=== PATIENT | male | born 1945 | race Two or more races ===

== ENCOUNTER 2016-11-13 22:28 | Inpatient (IN) | payer OTHER ==
[~2016-11-13] VITALS: Ht 160 cm; Wt 71.5 kg
[~2016-11-13 22:28] MED LIST: ENAL10TA PO
[2016-11-14] VITALS (12 sets, daily range): BP systolic 111–148; BP diastolic 58–75; PULSE 45–55; RESP 18–20; Ht 160 cm; Wt 71.5 kg
[2016-11-14] MEDS ORDERED: morphine 2 MG INJ IV PRN (03:00)
[2016-11-14] MEDS ORDERED: ACETAMINOPHEN 325 MG TAB PO PRN (03:00)
[2016-11-14] MEDS ORDERED: ONDANSETRON 4 MG INJ IV PRN (03:00)
--- NOTE | 2016-11-14 06:27 | HP ---
Date/Time of Note Date/Time of Note DATE: 11/14/16 TIME: 06:16 Assessment/Plan VTE Prophylaxis VTE Prophylaxis Intervention: heparin Lines/Catheters IV C[facility] Type (from [facility] Peripheral IV Urinary Cath still in place: No Assessment/Plan Assessment/Plan 1. Near syncope and lightheadedness: TIA vs cardiovascular disease -Patient had been bradycardic in the 40s since admission here. Head CT at the outside hospital was negative for any acute processes. - Will order a 2D echo and a bilateral carotid Doppler ultrasound. Will trend his troponin. - Cardiology evaluation - will have physical therapy evaluation. 2. Sinus bradycardia -Probably contributing to the patient's symptoms. Will place a cardiology consult 3. History of hypertension: -Adjust blood pressure medication as needed 4. 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 HPI/ROS Admit Date/Time Admit Date/Time Nov 14, 2016 at 02:05 Hx of Present Illness This is a 71-year-old male with a history of hypertension and and left infraorbital basal cell carcinoma status post removal 2 years ago. Patient initially went to an outside hospital complaining of dizziness/lightheadedness and was transferred to [facility] because of insurance reason. Patient is a [place]ian-speaking only but he is accompanied by his daughter who was at the bedside. Over the past day or 2 he has been complaining of feeling dizzy and according to the daughter he almost fainted and looked pale. He did complain of some vague chest discomfort but mainly he complained of bloating sensation. Denied any facial droop, blurry vision, weakness or numbness. According to the daughter in the past he has also complained of feeling dizzy especially when he gets up from a seated position. At the outside hospital, CT of the head was done and it showed mild chronic microangiopathic ischemic disease and volume loss. No infarct or hemorrhage. His CBC and CMP were within acceptable range. Currently patient is feeling well and he actually does not have any complaint at this point. PMH/Family/Social Past Medical History Medical History: hypertension, other (facial skin carcinoma) Social History Alcohol Use: occasionally Smoking Status: Never smoker Drug Use: none Exam/Review of Systems Vital Signs Vitals Vital Signs Date Time Temp Pulse Resp B/P Pulse Ox O2 Delivery O2 Flow Rate FiO2 7/22/17 04:32 45 Exam Constitutional: alert, oriented, well developed Head: atraumatic, normocephalic Eyes: EOMI, PERRL Respiratory: clear to auscultation, normal air movement Cardiovascular: nl pulses, regular rate and rhythm Gastrointestinal: non-tender, soft Extremities: normal pulses Medications Medications Current Medications Aspirin (Aspirin) 81 mg DAILY PO ; Start 11/14/16 at 09:00 Heparin Sodium (Porcine) (Heparin (5000 Units/0.5 ml)) 5,000 unit BID SC ; Start 11/14/16 at 09:00 Morphine Sulfate (morphine) 2 mg Q4H PRN IV PAIN; Start 11/14/16 at 03:00 Atorvastatin Calcium (Lipitor) 20 mg HS PO ; Start 11/14/16 at 21:00 Acetaminophen (Tylenol Tab) 650 mg Q4H PRN PO PAIN AND OR ELEVATED TEMP; Start 11/14/16 at 03:00 Ondansetron HCl (Zofran Inj) 4 mg Q6H PRN IV NAUSEA AND/OR VOMITING; Start at 03:00 EBONY LEA MD Nov 14, 2016 06:26
[2016-11-14 07:40] LABS: BASOPHILS % 0.6 % (0.0-2.0); EOSINOPHILS # 0.2 10^3/ul (0.0-0.5); EOSINOPHILS % 2.6 % (0.0-7.0); HEMATOCRIT 41.1 % (42.0-52.0); HEMOGLOBIN 14.1 g/dl (14.0-18.0); LYMPHOCYTES # 2.2 10^3/ul (0.8-2.9); LYMPHOCYTES % 32.8 % (15.0-51.0); MEAN CORPUSCULAR HGB CONC 34.3 g/dl (32.0-37.0); MEAN CORPUSCULAR VOLUME 87.4 fl (82.0-101.0); MEAN PLATELET VOLUME 11.3 fl (7.4-10.4); MONOCYTE # 0.8 10^3/ul (0.3-0.9); MONOCYTES % 11.8 % (0.0-11.0); NEUTROPHIL # 3.4 10^3/ul (1.6-7.5); NEUTROPHILS % 51.9 % (39.0-77.0); PLATELET COUNT 171 10^3/UL (140-415); WHITE BLOOD COUNT 6.6 10^3/ul (4.8-10.8)
[2016-11-14 07:58] LABS: ALBUMIN 3.6 g/dl (3.3-4.9); ALBUMIN/GLOBULIN RATIO 1.2; BILIRUBIN,INDIRECT 0.4 mg/dl (0-1.1); BILIRUBIN,TOTAL 0.4 mg/dl (0.2-1.3); CHOL/HDL RATIO 5.6 RATIO; CREATININE 0.72 mg/dl (0.61-1.24); MAGNESIUM 2.1 mg/dl (1.7-2.5); PHOSPHORUS 3.3 mg/dl (2.5-4.9); POTASSIUM 3.8 mmol/L (3.5-5.1); TOTAL PROTEIN 6.6 g/dl (6.1-8.1)
[2016-11-14 08:22] LABS: THYROID STIMULATING HORMONE 1.66 MIU/L (0.465-4.680)
[2016-11-14] MEDS: ASPIRIN 81 MG TAB PO SCH (08:34)
[2016-11-14] MEDS: HEPARIN 5,000 UNIT/0.5 ML VIAL SC SCH ×2 (08:47→21:12)
--- NOTE | 2016-11-14 14:52 | RADRPT ---
PROCEDURE: US carotid arteries. CLINICAL INDICATION: Dizziness. Transient ischemic attack. TECHNIQUE: Multiple sonographic images of the carotid arteries and vertebral arteries were obtaine d utilizing hinojosa scale, duplex, and color-flow imaging. The images were reviewed on a PACS workstati on. COMPARISON: No prior studies are available for comparison. FINDINGS: Evaluation of the right carotid bifurcation region reveals mild atherosclerotic disease. Evaluation of the left carotid bifurcation region reveals mild atherosclerotic disease. There is antegrade flow within the vertebral arteries bilaterally. RIGHT CAROTID MEASUREMENTS: Common Carotid [id number] (cm/sec) Internal Carotid Artery 66 (cm/sec) External Carotid Artery 90 (cm/sec) Vertebral Artery 45 (cm/sec) Internal Carotid/Common Carotid1.0 LEFT CAROTID MEASUREMENTS: Common Carotid Fxvzny74 (cm/sec) Internal Carotid Artery 68 (cm/sec) External Carotid Artery 70 (cm/sec) Vertebral Artery 46 (cm/sec) Internal Carotid/Common Carotid0.8 Validated velocity measurements with angiographic measurements. Velocity criteria are extrapolated f rom diameter data as defined by the Society of Radiologists in Ultrasound Consensus Conference. Radi ology 2003; 229;340-346. This study does indirectly reference the measurement of the distal ICA justyna meter as the denominator for stenosis measurement. IMPRESSION: 1. Less than 50% stenosis bilaterally in the internal carotid arteries. 2. Normal antegrade flow in the vertebral arteries bilaterally. RPTAT: QQ SRU Consensus Conference Criteria for the Diagnosis of Carotid Artery Stenosis* Degree of Stenosis, % ICA PSV, cm/sec Plaque Estimate, % ICA/CCA PSV Ratio Normal <125 None <2.0 <50 <125 <50 <2.0 50 69 125-230 >50 2.0-4.0 >70 but less than near occlusion >230 >50 <4.0 Near occlusion High, low, or undetectable Visible Variable Total occlusion Undetectable Visible, no detectable lumen Not applicable *Cartoid artery stenosis: hinojosa-scale and Doppler US diagnosis. Society of Radiologists in Ultrasound Consensus Conference. Radiology 2003; 229: 340-346 .Frandy Ramirez MD, Date Time Electronically viewed and signed by .Frandy Ramirez MD, on 11/14/2016 14:52 .R/
[2016-11-14] MEDS: ATORVASTATIN 20 MG TAB PO SCH (21:05)
[2016-11-15] VITALS (11 sets, daily range): BP systolic 131–152; BP diastolic 65–97; PULSE 47–59; RESP 17–18
[2016-11-15 07:21] LABS: BASOPHILS % 0.6 % (0.0-2.0); EOSINOPHILS # 0.2 10^3/ul (0.0-0.5); HEMATOCRIT 42.1 % (42.0-52.0); HEMOGLOBIN 14.3 g/dl (14.0-18.0); LYMPHOCYTES # 2.4 10^3/ul (0.8-2.9); LYMPHOCYTES % 45.6 % (15.0-51.0); MEAN CORPUSCULAR HEMOGLOBIN 29.6 pg (29.0-33.0); MEAN CORPUSCULAR VOLUME 87.2 fl (82.0-101.0); MEAN PLATELET VOLUME 11.4 fl (7.4-10.4); MONOCYTE # 0.6 10^3/ul (0.3-0.9); MONOCYTES % 10.5 % (0.0-11.0); NEUTROPHIL # 2.1 10^3/ul (1.6-7.5); NEUTROPHILS % 38.9 % (39.0-77.0); PLATELET COUNT 164 10^3/UL (140-415); RED BLOOD COUNT 4.83 10^6/ul (4.70-6.10); RED CELL DISTRIBUTION WIDTH 13.3 % (11.5-14.5); WHITE BLOOD COUNT 5.3 10^3/ul (4.8-10.8)
[2016-11-15 08:11] LABS: CALCIUM 8.7 mg/dl (8.4-10.2); CREATININE 0.79 mg/dl (0.61-1.24)
[2016-11-15] MEDS: ASPIRIN 81 MG TAB PO SCH (08:26)
[2016-11-15] MEDS: HEPARIN 5,000 UNIT/0.5 ML VIAL SC SCH ×2 (08:33→21:16)
--- NOTE | 2016-11-15 14:24 | RADRPT ---
Echocardiogram Report ADDENDUM Patient Name: LEDA LANGE Gender: Male Date: 1945 Study Date: 14-Nov-2016 Rfid Developer: ARSENIO Location: I Ref. Physician: EBONY LEA Quality: Adequate Procedures: Transthoracic echocardiogram with complete 2D, M-Mode, and doppler examination. Indications: Transient Ischemic Attack. 2D/M Mode Doppler Measurement Value Normal Ranges Measurement Value Normal Ranges AoR Diam MM 3.6 cm AV Peak Armin 1.2 m/sec ACS MM 2.2 cm AV Peak PG 6.0 mmHg LVIDd 2D 4.1 3.5 - 5.6 cm AI Peak PG 62.8 mmHg LVIDs 2D 2.5 2.1 - 4.1 cm AI Peak Armin 4.0 m/sec LVPWd 2D 1.0 0.6 - 1.1 cm AI PHT 686.7 msec IVSd 2D 1.0 0.6 - 1.1 cm LVOT Peak Armin 0.9 m/sec EDV 2D 74.3 cm3 LVOT Peak PG 3.4 mmHg ESV 2D 15.1 cm3 MV E Peak Armin 0.5 m/sec LA Dimen 2D 3.8 2.3 - 4.0 cm MV A Peak Armin 0.7 m/sec MV E/A 0.7 MV Decel Time 195 msec MV Decel [place] 2 MV E/A 0.7 PV Peak Armin 1.0 m/sec PV Peak PG 4.0 mmHg Findings Left Ventricle: Normal left ventricular systolic function. Normal left ventricular cavity size. Normal left ventricular wall thickness. Ejection fraction is visually estimated at 60 %. Tissue Doppler/Mitral Doppler indices are consistent with impaired relaxation (Stage I diastolic dysfunction). E/E`=7. Right Ventricle: Normal right ventricular size. Normal right ventricular systolic function. Left Atrium: The left atrium is normal in size. Right Atrium: The right atrium is normal in size. Atrial Septum: Normal atrial septum. Mitral Valve: Normal appearance of the mitral valve. Trace mitral regurgitation. Aortic Valve: Normal appearance of the aortic valve. No hemodynamically significant aortic stenosis by doppler. Trileaflet aortic valve. Mild aortic valve regurgitation. Tricuspid Valve: Normal appearance and function of the tricuspid valve with trace physiologic regurgitation. Pulmonic Valve: Normal pulmonic valve appearance. There is trace pulmonic regurgitation. Pericardium: Normal pericardium with no significant pericardial effusion. Aorta: Normal aortic root. IVC: Normal size and normal respiratory collapse consistent with normal right atrial pressure. Pulmonary Artery: Normal pulmonary artery size. Conclusions 1.Normal left ventricular systolic function. Normal left ventricular cavity size. Normal left ventricular wall thickness. Ejection fraction is visually estimated at 60 %. Tissue Doppler/Mitral Doppler indices are consistent with impaired relaxation (Stage I diastolic dysfunction). 2.Normal right ventricular size. Normal right ventricular systolic function. 3.Normal appearance of the mitral valve. Trace mitral regurgitation. 4.Normal appearance of the aortic valve. No hemodynamically significant aortic stenosis by doppler. Trileaflet aortic valve. Mild aortic valve regurgitation. 5.Normal appearance and function of the tricuspid valve with trace physiologic regurgitation. 6.Normal pericardium with no significant pericardial effusion. Electronically Signed By: Matt Hahn 15-Nov-2016 14:25:36 -0700 [ADDENDUM] Patient Name: LEDA LANGE Study Date: 14-Nov-2016 [id number]
--- NOTE | 2016-11-15 14:24 | PN ---
Date/Time of Note Date/Time of Note DATE: 11/15/16 TIME: 14:22 Assessment/Plan VTE Prophylaxis VTE Prophylaxis Intervention: SCD's Lines/Catheters [facility]from [facility] Saline Lock Urinary Cath still in place: No Assessment/Plan Chief Complaint/Hosp Course Assessment and plan 1. Near syncope. Patient noted to be bradycardic sinus in the 40s. Suspect possible etiologies bradycardia. Head CT was negative for any acute process. 2D echo is pending. Cartographic Aide follow. Continue inpatient monitoring. Of note no further reports of near syncope at this time. But patient does report having near syncopal episodes for several years. Will follow up. 2. Sinus bradycardia. Continue telemetry monitoring. heel emery buffer following 3. Essential hypertension. Continue antihypertensives as needed. 4. History of left orbital basal cell carcinoma. Patient is status post removal of this years ago. Patient for outpatient follow-up with this issue. Disposition and plan: Continue telemetry monitoring. Await for 2D echo as well as heel emery buffer input. Discussed plan of care with Dr. Valentino Problems: Subjective 24 Hr Interval Summary Free Text/Dictation No reports of syncope at this time. Appears comfortable. Family at bedside. Exam/Review of Systems Vital Signs Vitals Vital Signs Date Time Temp Pulse Resp B/P Pulse Ox O2 Delivery O2 Flow Rate FiO2 11/15/16 12:19 56 11/15/16 11:19 98.2 18 135/65 95 11/14/16 02:00 Room Air Intake and Output 11/14/16 11/14/16 11/15/16 15:00 23:00 07:00 Intake Total 500 ml 350 ml Balance 500 ml 350 ml Exam Constitutional: alert, oriented Psych: nl mood/affect Head: normocephalic Neck: supple, No jvd Respiratory: clear to auscultation, normal air movement Cardiovascular: regular rate and rhythm Gastrointestinal: non-tender, soft Musculoskeletal: nl extremities to inspection Neurological: INSOLE LIP TURNER II-XII intact, nl mental status, nl speech Results Result Diagram: 11/15/16 0620 11/15/16 0630 Results 24 hrs Laboratory Tests Test 11/15/16 06:20 11/15/16 06:30 White Blood Count 5.3 Red Blood Count 4.83 Hemoglobin 14.3 Hematocrit 42.1 Mean Corpuscular Volume 87.2 Mean Corpuscular Hemoglobin 29.6 Mean Corpuscular Hemoglobin Concent 34.0 Red Cell Distribution Width 13.3 Platelet Count 164 Mean Platelet Volume 11.4 H Neutrophils % 38.9 L Lymphocytes % 45.6 Monocytes % 10.5 Eosinophils % 4.0 Basophils % 0.6 Nucleated Red Blood Cells % 0.0 Neutrophils # 2.1 Lymphocytes # 2.4 Monocytes # 0.6 Eosinophils # 0.2 Basophils # 0.0 Nucleated Red Blood Cells # 0.0 Sodium Level 144 Potassium Level 4.0 Chloride Level 106 Carbon Dioxide Level 27 Anion Gap 15 Blood Urea Nitrogen 16 Creatinine 0.79 Glucose Level 100 Calcium Level 8.7 Medications Medications Current Medications Aspirin (Aspirin) 81 mg DAILY PO Last administered on 11/15/16 08:26; Admin Dose 81 MG; Start 11/14/16 at 09:00 Heparin Sodium (Porcine) (Heparin (5000 Units/0.5 ml)) 5,000 unit BID SC Last administered on 11/15/16 08:33; Admin Dose 5,000 UNIT; Start 11/14/16 at 09:00 Morphine Sulfate (morphine) 2 mg Q4H PRN IV PAIN; Start 11/14/16 at 03:00 Atorvastatin Calcium (Lipitor) 20 mg HS PO Last administered on 11/14/16 21:05 ; Admin Dose 20 MG; Start 11/14/16 at 21:00 Acetaminophen (Tylenol Tab) 650 mg Q4H PRN PO PAIN AND OR ELEVATED TEMP; Start 11/14/16 at 03:00 Ondansetron HCl (Zofran Inj) 4 mg Q6H PRN IV NAUSEA AND/OR VOMITING; Start at 03:00 GERSON HUDSON Nov 15, 2016 14:24
[2016-11-15] MEDS: CLOPIDOGREL 75 MG TAB PO SCH (16:38)
[2016-11-15] MEDS: ATORVASTATIN 20 MG TAB PO SCH (21:12)
[2016-11-16] VITALS (12 sets, daily range): BP systolic 122–160; BP diastolic 56–78; PULSE 52–66; RESP 16–19
[2016-11-16 08:17] LABS: BASOPHILS % 0.7 % (0.0-2.0); EOSINOPHILS # 0.2 10^3/ul (0.0-0.5); EOSINOPHILS % 3.8 % (0.0-7.0); HEMATOCRIT 42.7 % (42.0-52.0); HEMOGLOBIN 14.7 g/dl (14.0-18.0); LYMPHOCYTES # 2.4 10^3/ul (0.8-2.9); MEAN CORPUSCULAR HGB CONC 34.4 g/dl (32.0-37.0); MEAN CORPUSCULAR VOLUME 87.1 fl (82.0-101.0); MEAN PLATELET VOLUME 11.3 fl (7.4-10.4); MONOCYTE # 0.6 10^3/ul (0.3-0.9); MONOCYTES % 10.4 % (0.0-11.0); NEUTROPHIL # 2.8 10^3/ul (1.6-7.5); NEUTROPHILS % 45.9 % (39.0-77.0); PLATELET COUNT 171 10^3/UL (140-415); RED CELL DISTRIBUTION WIDTH 13.2 % (11.5-14.5); WHITE BLOOD COUNT 6.1 10^3/ul (4.8-10.8)
[2016-11-16 08:37] LABS: CALCIUM 8.9 mg/dl (8.4-10.2); CREATININE 0.85 mg/dl (0.61-1.24); POTASSIUM 3.8 mmol/L (3.5-5.1)
[2016-11-16] MEDS: CLOPIDOGREL 75 MG TAB PO SCH (09:40)
[2016-11-16] MEDS: ASPIRIN 81 MG TAB PO SCH (09:40)
[2016-11-16] MEDS: HEPARIN 5,000 UNIT/0.5 ML VIAL SC SCH ×2 (09:41→20:45)
[2016-11-16] MEDS ORDERED: CLOP75TA28 PO (10:04)
[2016-11-16] MEDS ORDERED: ATOR20TA65 PO (10:04)
--- NOTE | 2016-11-16 12:36 | CONS ---
Date/Time of Note Date/Time of Note DATE: 11/16/16 TIME: 12:32 Assessment/Plan Assessment/Plan Chief Complaint/Hosp Course IMP: 1.bradycardia-to 50's mainly with stable BP 2.HTN 3.Near syncope-negative trop x 3 and NL EF/no sig stenosis Recc: -Tele -serial ecg's -Continue/asa/plavix -Continue statin -outpatient f/u and possible event monitoring Problems: Consultation Date/Type/Reason Admit Date/Time Nov 14, 2016 at 02:05 Initial Consult Date 11/15/2016 Type of Consultation: cardiology Reason for Consultation syncope Referring Provider: RICHARD COBIAN Exam/Review of Systems Vital Signs Vitals Vital Signs Date Time Temp Pulse Resp B/P Pulse Ox O2 Delivery O2 Flow Rate FiO2 11/16/16 12:13 57 11/16/16 11:15 98.2 16 122/56 96 11/14/16 02:00 Room Air Intake and Output 11/15/16 11/15/16 11/16/16 15:00 23:00 07:00 Intake Total 950 ml 400 ml Balance 950 ml 400 ml Exam Review of Systems: CONSTITUTIONAL: No fevers, chills. PULMONARY: No sob CARDIOVASCULAR: No chest pain/palpitations GASTROINTESTINAL: No nausea/vomiting. GENITOURINARY: No hematuria/dysuria. MUSCULOSKELETAL: No myagias/arthalgias. PSYCHIATRIC: The patient denies depression. NEUROLOGIC: No weakness Constitutional: alert Psych: no complaints Head: normocephalic ENMT: mucosa pink and moist Neck: jvd (9 cm water), supple Respiratory: clear to auscultation Cardiovascular: other (bradycardia) Gastrointestinal: non-tender, soft Musculoskeletal: muscle tone (normal) Extremities: edema (none) Neurological: other (NO focal deficits) Results Result Diagram: 11/16/16 0715 11/16/16 0715 Results 24 hrs Laboratory Tests Test 11/16/16 07:15 White Blood Count 6.1 Red Blood Count 4.90 Hemoglobin 14.7 Hematocrit 42.7 Mean Corpuscular Volume 87.1 Mean Corpuscular Hemoglobin 30.0 Mean Corpuscular Hemoglobin Concent 34.4 Red Cell Distribution Width 13.2 Platelet Count 171 Mean Platelet Volume 11.3 H Neutrophils % 45.9 Lymphocytes % 39.0 Monocytes % 10.4 Eosinophils % 3.8 Basophils % 0.7 Nucleated Red Blood Cells % 0.0 Neutrophils # 2.8 Lymphocytes # 2.4 Monocytes # 0.6 Eosinophils # 0.2 Basophils # 0.0 Nucleated Red Blood Cells # 0.0 Sodium Level 142 Potassium Level 3.8 Chloride Level 103 Carbon Dioxide Level 27 Anion Gap 16 Blood Urea Nitrogen 14 Creatinine 0.85 Glucose Level 142 # Calcium Level 8.9 Medications Medications Current Medications Aspirin (Aspirin) 81 mg DAILY PO Last administered on 11/16/16 09:40; Admin Dose 81 MG; Start 11/14/16 at 09:00 Heparin Sodium (Porcine) (Heparin (5000 Units/0.5 ml)) 5,000 unit BID SC Last administered on 11/16/16 09:41; Admin Dose 5,000 UNIT; Start 11/14/16 at 09:00 Morphine Sulfate (morphine) 2 mg Q4H PRN IV PAIN; Start 11/14/16 at 03:00 Atorvastatin Calcium (Lipitor) 20 mg HS PO Last administered on 11/15/16 21:12 ; Admin Dose 20 MG; Start 11/14/16 at 21:00 Acetaminophen (Tylenol Tab) 650 mg Q4H PRN PO PAIN AND OR ELEVATED TEMP; Start 11/14/16 at 03:00 Ondansetron HCl (Zofran Inj) 4 mg Q6H PRN IV NAUSEA AND/OR VOMITING; Start at 03:00 Clopidogrel Bisulfate (plaVIX) 75 mg DAILY PO Last administered on 11/16/16 09 :40; Admin Dose 75 MG; Start 11/15/16 at 15:30 KYLE GARCIA Nov 16, 2016 12:36
--- NOTE | 2016-11-16 15:17 | PN ---
Date/Time of Note Date/Time of Note DATE: 11/16/16 TIME: 15:15 Assessment/Plan VTE Prophylaxis VTE Prophylaxis Intervention: SCD's Lines/Catheters IV [facility] (from [facility] Saline Lock Urinary Cath still in place: No Assessment/Plan Chief Complaint/Hosp Course Assessment and plan 1. Near syncope. Patient noted to be bradycardic sinus in the 40s. possible etiologies bradycardia?. Pr Internship follow. Continue inpatient monitoring. Of note no further reports of near syncope at this time. But patient does report having near syncopal episodes for several years. CT scan of the head is pending. We will follow-up 2. Sinus bradycardia. Continue telemetry monitoring. Pr Internship follow 3. Essential hypertension. Continue antihypertensives as needed. 4. History of left orbital basal cell carcinoma. Patient is status post removal of this years ago. Patient for outpatient follow-up with this issue. Disposition and plan: Worse headache and dizziness. Follow-up on CT brain. Discussed plan of care with Dr. Carney Problems: Subjective 24 Hr Interval Summary Free Text/Dictation Reports worsening headache at this time. Also reports some dizziness. No reports of near syncope. Exam/Review of Systems Vital Signs Vitals Vital Signs Date Time Temp Pulse Resp B/P Pulse Ox O2 Delivery O2 Flow Rate FiO2 11/16/16 15:06 98.2 78 16 138/78 97 11/14/16 02:00 Room Air Intake and Output 11/15/16 11/15/16 11/16/16 15:00 23:00 07:00 Intake Total 950 ml 400 ml Balance 950 ml 400 ml Exam Constitutional: alert, oriented Psych: nl mood/affect Eyes: nl conjunctiva Neck: supple, No jvd Respiratory: clear to auscultation Cardiovascular: regular rate and rhythm Gastrointestinal: soft, No non-tender Musculoskeletal: nl extremities to inspection Neurological: SENIOR IT ASSISTANT II-XII intact, nl mental status, nl speech Results Result Diagram: 11/16/16 0715 11/16/16 0715 Results 24 hrs Laboratory Tests Test 11/16/16 07:15 White Blood Count 6.1 Red Blood Count 4.90 Hemoglobin 14.7 Hematocrit 42.7 Mean Corpuscular Volume 87.1 Mean Corpuscular Hemoglobin 30.0 Mean Corpuscular Hemoglobin Concent 34.4 Red Cell Distribution Width 13.2 Platelet Count 171 Mean Platelet Volume 11.3 H Neutrophils % 45.9 Lymphocytes % 39.0 Monocytes % 10.4 Eosinophils % 3.8 Basophils % 0.7 Nucleated Red Blood Cells % 0.0 Neutrophils # 2.8 Lymphocytes # 2.4 Monocytes # 0.6 Eosinophils # 0.2 Basophils # 0.0 Nucleated Red Blood Cells # 0.0 Sodium Level 142 Potassium Level 3.8 Chloride Level 103 Carbon Dioxide Level 27 Anion Gap 16 Blood Urea Nitrogen 14 Creatinine 0.85 Glucose Level 142 # Calcium Level 8.9 Medications Medications Current Medications Aspirin (Aspirin) 81 mg DAILY PO Last administered on 11/16/16 09:40; Admin Dose 81 MG; Start 11/14/16 at 09:00 Heparin Sodium (Porcine) (Heparin (5000 Units/0.5 ml)) 5,000 unit BID SC Last administered on 11/16/16 09:41; Admin Dose 5,000 UNIT; Start 11/14/16 at 09:00 Morphine Sulfate (morphine) 2 mg Q4H PRN IV PAIN; Start 11/14/16 at 03:00 Atorvastatin Calcium (Lipitor) 20 mg HS PO Last administered on 11/15/16 21:12 ; Admin Dose 20 MG; Start 11/14/16 at 21:00 Acetaminophen (Tylenol Tab) 650 mg Q4H PRN PO PAIN AND OR ELEVATED TEMP; Start 11/14/16 at 03:00 Ondansetron HCl (Zofran Inj) 4 mg Q6H PRN IV NAUSEA AND/OR VOMITING; Start at 03:00 Clopidogrel Bisulfate (plaVIX) 75 mg DAILY PO Last administered on 11/16/16 09 :40; Admin Dose 75 MG; Start 11/15/16 at 15:30 GERSON HUDSON Nov 16, 2016 15:17
--- NOTE | 2016-11-16 17:49 | RADRPT ---
PROCEDURE: CT Brain without. CLINICAL INDICATION: Headache, dizziness, syncope. TECHNIQUE: A CT of the brain was performed on multidetector high-resolution CT scanner utilizing a xial sections from the skull base through the vertex without contrast. The scan was reviewed in sof t tissue brain and high frequency resolution bone algorithm windows. Images were reviewed on a high -resolution PACS workstation. One or more the following does reduction techniques were utilized: Aut omated exposure control, adjustment of the mA/ or kV according to patient's size, or use of iterativ e reconstruction technique. The exam CTDI = 44.58 mGy and the DLP = 720.23 mGy-cm. COMPARISON: None available. FINDINGS: The ventricles and sulci are mildly prominent indicative of volume loss. There is mild cerebellar vo lume loss. There is no intracranial hemorrhage, mass effect or midline shift. No abnormal intra-ax ial or extra-axial fluid collections are seen. The hinojosa/white matter differentiation is preserved. There are mild scattered foci of hypoattenuation in the periventricular, deep, and subcortical white matter, which are nonspecific in etiology but likely reflect chronic small vessel ischemic changes. There are mild intracranial vascular calcifications consistent with atherosclerosis. The visualize d paranasal sinuses demonstrate small mucoid secretion/fluid level in the left sphenoid sinus. The mastoid air cells are essentially clear. IMPRESSION: 1. No acute intracranial hemorrhage, transcortical infarction or mass effect. 2. Mild intracranial atherosclerosis and chronic small vessel ischemic changes. 3. Mild generalized cerebral volume loss. 4. Small mucoid secretion/fluid level in the left sphenoid sinus. RPTAT: HH .Genesis Macario MD, MD Date Time Electronically viewed and signed by .Genesis Macario MD, MD on 11/16/2016 17:48 .N/
[2016-11-16] MEDS: ATORVASTATIN 20 MG TAB PO SCH (20:45)
[2016-11-17] VITALS (9 sets, daily range): BP systolic 121–147; BP diastolic 63–80; PULSE 40–74; RESP 18–19
[2016-11-17 07:56] LABS: BASOPHILS % 0.5 % (0.0-2.0); EOSINOPHILS # 0.3 10^3/ul (0.0-0.5); EOSINOPHILS % 4.4 % (0.0-7.0); HEMATOCRIT 40.9 % (42.0-52.0); HEMOGLOBIN 14.1 g/dl (14.0-18.0); LYMPHOCYTES # 2.3 10^3/ul (0.8-2.9); LYMPHOCYTES % 40.3 % (15.0-51.0); MEAN CORPUSCULAR HEMOGLOBIN 29.6 pg (29.0-33.0); MEAN CORPUSCULAR HGB CONC 34.5 g/dl (32.0-37.0); MEAN CORPUSCULAR VOLUME 85.7 fl (82.0-101.0); MEAN PLATELET VOLUME 11.4 fl (7.4-10.4); MONOCYTE # 0.5 10^3/ul (0.3-0.9); MONOCYTES % 9.5 % (0.0-11.0); NEUTROPHIL # 2.6 10^3/ul (1.6-7.5); NEUTROPHILS % 44.9 % (39.0-77.0); PLATELET COUNT 169 10^3/UL (140-415); RED BLOOD COUNT 4.77 10^6/ul (4.70-6.10); RED CELL DISTRIBUTION WIDTH 13.2 % (11.5-14.5); WHITE BLOOD COUNT 5.7 10^3/ul (4.8-10.8)
[2016-11-17] MEDS: ASPIRIN 81 MG TAB PO SCH (08:33)
[2016-11-17] MEDS: CLOPIDOGREL 75 MG TAB PO SCH (08:33)
[2016-11-17] MEDS: HEPARIN 5,000 UNIT/0.5 ML VIAL SC SCH (08:38)
[2016-11-17 08:39] LABS: CREATININE 0.81 mg/dl (0.61-1.24); POTASSIUM 3.9 mmol/L (3.5-5.1)
--- NOTE | 2016-11-17 10:56 | PDOCDIS ---
Discharge Instructions CONDITION Patient Condition: Good HOME CARE INSTRUCTIONS: Diet Instructions: Modified Fat ACTIVITY: Activity Restrictions: No Restrictions FOLLOW UP/APPOINTMENTS Follow-up Plan F/U WITH YOUR PCP IN 1-2 WEEKS, ALSO F/U WITH A VAMPER IN REGARDS TO THE LOW HEART RATE JIL MORELAND Nov 17, 2016 10:56
--- NOTE | 2016-11-17 14:02 | DS ---
Date/Time of Note Date/Time of Note DATE: 11/17/16 TIME: 13:55 Discharge Summary Admission/Discharge Info Admit Date/Time Nov 14, 2016 at 02:05 Discharge Date/Time Nov 17, 2016 at 12:58 Discharge Diagnosis 1. Near syncope possibly secondary to symptomatic bradycardia versus orthostatic hypotension-resolved CT head and carotid ultrasound show no significant finding DC home blood pressure medications Patient will need outpatient event monitoring, this is explained to patient's daughter 2. History of hypertension-stable without any medication DC home blood pressure medications secondary to near syncope 3. History of left orbital basal cell carcinoma. Patient is status post removal of this years ago. Patient for outpatient follow-up with this issue. 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 Patient initially went to an outside hospital complaining of dizziness/lightheadedness and was transferred to [facility] because of insurance reason. Patient was found to be bradycardic and was evaluated by cardiology and was monitored on telemetry. Patient brain CT head and carotid ultrasound were negative for any acute findings. The patient has had few prior episodes of this near syncope and dizziness in the past, urology recommendation was for outpatient event monitoring. On day of discharge patient's vitals labs physical exam are stable, he had no further complaints of dizziness his vitals had stabilized. Questions are answered and patient's daughter was told that patient needs a follow-up with a appliance painter and refinisher for outpatient event monitoring. Home Meds Active Scripts Clopidogrel Bisulfate (Clopidogrel) 75 Mg Tablet, 75 MG PO DAILY for 30 Days, TAB Prov:GERSON HUDSON 11/16/16 Atorvastatin Calcium (Atorvastatin Calcium) 20 Mg Tablet, 20 MG PO HS for 30 Days, TAB Prov:GERSON HUDSON 11/16/16 Discontinued Reported Medications Enalapril Maleate* (Enalapril Maleate*) 10 Mg Tablet, 10 MG PO DAILY, TAB 12/19/14 Follow-up Plan Follow with PCP 1-2 weeks and follow-up with cardiology for outpatient event monitoring Primary Care Provider Not On Staff Doctor Time spent on discharge: > 30 minutes JIL MORELAND Nov 17, 2016 14:02
== END 2016-11-17 12:58 | disposition home or self-care (01) | DRG 312 ==
LOC: TEL 11-14 02:05
PROVIDERS: ADMIT Internal Medicine; ATTEND Internal Medicine
DX: I95.1 Orthostatic hypotension (principal); R00.1 Bradycardia, unspecified; I10 Essential (primary) hypertension; Z85.89 Personal history of malignant neoplasm of other organs and systems
CPT/HCPCS: 70450; 80048; 80053; 80061; 83036; 83735; 84100; 84443; 84484; 85025; 92610; 93306; 93880; 97162; J1644

== ENCOUNTER 2017-08-18 09:56 | Emergency (ER) | END 2017-08-18 11:28 | disposition home or self-care (01) ==